=== PATIENT | male | born 1935 | race Caucasian/White ===

== ENCOUNTER 2022-08-22 14:28 | Emergency (ER) | payer MEDICARE, OTHER ==
[~2022-08-22] VITALS: Ht 178 cm; Wt 64.0 kg
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
[2022-08-22 14:58] LABS: EOSINOPHILS # (AUTO) 0.1 10^3/uL (0.0-0.3); EOSINOPHILS % (AUTO) 1 % (0-10); HEMOGLOBIN 11.9 g/dL (13.3-17.7); MEAN CORPUSCULAR HEMOGLOBIN 34 pg (25-34); MONOCYTES % (AUTO) 14 % (0-12)
[2022-08-22 15:00] LABS: BASOPHILS # (AUTO) 0.1 10^3/uL (0.0-0.1); BASOPHILS % (AUTO) 1 % (0-10); HEMATOCRIT 34 % (40-54); LYMPHOCYTES # (AUTO) 1.2 10^3/uL (1.0-4.0); LYMPHOCYTES % (AUTO) 20 % (12-44); MEAN CORPUSCULAR HGB CONC 35 g/dL (32-36); MEAN CORPUSCULAR VOLUME 99 fL (80-99); MEAN PLATELET VOLUME 9.8 fL (9.0-12.2); MONOCYTES # (AUTO) 0.8 10^3/uL (0.0-1.0); NEUTROPHILS # (AUTO) 3.8 10^3/uL (1.8-7.8); NEUTROPHILS % (AUTO) 64 % (42-75); PLATELET COUNT 138 10^3/uL (130-400)
[2022-08-22 15:14] LABS: PROTHROMBIN TIME PATIENT 13.9 SEC (12.2-14.7)
[2022-08-22] MEDS ORDERED: fentaNYL INJ 100 MCG/2 ML AMP IVP ONE (15:15)
[2022-08-22 15:20] LABS: CALCIUM 8.5 MG/DL (8.5-10.1); CREATININE SERUM 0.94 MG/DL (0.60-1.30); POTASSIUM 3.3 MMOL/L (3.6-5.0)
--- NOTE | 2022-08-22 15:28 | Diagnostic Imaging Report ---
PROCEDURE: CT head and CT cervical spine without contrast. TECHNIQUE: Multiple contiguous axial images were obtained through the brain and cervical spine without the use of intravenous contrast. Sagittal and coronal reformations through the cervical spine were then performed. Auto Exposure Controls were utilized during the CT exam to meet ALARA standards for radiation dose reduction. INDICATION: Fall. Closed head injury. Loss of consciousness. COMPARISON: None. CT HEAD: There is acute subdural hyperdense blood layering along the right tentorium in the coronal reconstructions. The thickness of this blood is maximal 5 mm cephalocaudal. In addition there is some posttraumatic peripheral subarachnoid blood in the right temporal and anteroinferior parietal lobes. A left-sided parietal scalp injury noted with no retained opaque foreign body and no underlying calvarial fracture. There is no intraventricular blood. There is cerebral cortical atrophy without moo hydrocephalus. The remaining dura and falx showed ossifications on a chronic benign basis. There are intracranial atherosclerotic vascular calcifications. The basilar cisterns patent. No sulcal effacement. There are no findings of an elevation to the intracranial pressures. Some chronic periventricular white matter small vessel disease. Orbits, sinuses and calvarium nonacute. There is no mastoid effusion. CT CERVICAL SPINE: Degenerative changes to the discs, endplates, facets and uncovertebral joints throughout the cervical spine are chronic. There was, however, no cervical spinal fracture or facet dislocation. Degenerative disc space narrowing, most severe at the C3-C4, C4-C5 and C5-C6 levels where there is slight grade 1, 2 to 3 mm degenerative retrolisthesis of C3-C4, C4 on C5 and minimally at C5 on C6. No acute appearing bony pathology is found no acute or suspect endplate irregularity. No paravertebral mass, hemorrhage or fluid collection. No traumatic deformity to the tracheal cartilage or hyoid bone. Visualized pulmonary apices and thoracic inlet appeared nonacute. There are heavy carotid atherosclerotic vascular calcifications. IMPRESSION: 1. CT head: Left-sided scalp injury with contrecoup subdural blood layering along the right tentorium as well as contrecoup right hemispheric peripheral posttraumatic subarachnoid blood involves the temporal and parietal lobes. 2. No fracture or epidural hemorrhage. No hydrocephalus or ventricular blood and no mass effect or shift. There are background chronic senescent changes superimposed without hemo-sinus. 3. CT cervical spine: Severe degenerative changes without fracture or dislocation. Critical findings relayed by phone to the ER physician. Dictated by: Dictated on workstation # [id number]
[2022-08-22] MEDS ORDERED: TETANUS,DIPTH,PERTUSS P/F (BOOSTRIX) 0.5 ML VIAL IM ONE (15:30)
[2022-08-22 16:12] VITALS: BP 143/92
== END 2022-08-22 16:14 | disposition other institution (70) ==
LOC: EDUNIT# 14:28 → ER 14:31
DX: S06.5X9A Traumatic subdural hemorrhage with loss of consciousness of unspecified duration, initial encounter (principal); W10.9XXA Fall (on) (from) unspecified stairs and steps, initial encounter; Y93.01 Activity, walking, marching and hiking; Y92.512 Supermarket, store or market as the place of occurrence of the external cause
CPT/HCPCS: 36415; 70450; 72125; 80048; 85025; 85610; 90715